=== PATIENT | female | born 1935 | race Caucasian/White ===

== ENCOUNTER 2022-05-18 14:40 | Emergency (ER) | payer OTHER ==
[~2022-05-18] VITALS: Ht 160 cm; Wt 63.5 kg
[2022-05-18] MEDS ORDERED: IV NORMAL SALINE 500 ML BAG IV ONE (15:00)
[2022-05-18 15:03] LABS: HEMATOCRIT 32.3 % (31.2-41.9); MEAN CORPUSCULAR HEMOGLOBIN 29.6 uug (24.7-32.8); MEAN CORPUSCULAR VOLUME 87.2 fL (75.5-95.3); PLATELET COUNT (AUTO) 307 K/uL (179-408)
[2022-05-18 15:16] LABS: BILIRUBIN,TOTAL 0.4 mg/dL (0.2-1.0); TOTAL PROTEIN, SERUM 7.9 g/dL (6.4-8.2)
[2022-05-18] MEDS ORDERED: HYDROCODONE/APAP 10-325 MG TABLET ONE (15:19)
--- NOTE | 2022-05-18 15:22 | NUR ---
PATIENT WAS SEEN BY . EKG DONE ,ALBS DRAWN, IV PLACED. PATIENT STATES SHE HAS A "FRACTURED BACK" AND REQUESTS PAIN MED.. DR GILBERT NOTIFIED
[2022-05-18] MEDS ORDERED: HYDROCODONE/APAP 10-325 MG TABLET PO ONE (15:30)
--- NOTE | 2022-05-18 15:55 | NUR ---
covid swab sent to lab
[2022-05-18] MEDS ORDERED: MORPHINE SULFATE 4 MG/1 ML DISP.SYRIN ONE (17:41)
[2022-05-18] MEDS ORDERED: MORPHINE SULFATE 4 MG/1 ML DISP.SYRIN IV ONE ×2 (17:45→19:15)
--- NOTE | 2022-05-18 19:00 | NUR ---
Patient c/o back pain, aware.. she recieved Gillett 10mg and Morphine 4 mg IV. She now states she "still has pain", Dr Kelly notified
--- NOTE | 2022-05-18 19:29 | NUR ---
hand off report given to jaqui
[2022-05-18] MEDS ORDERED: HYDROMORPHONE 1 MG/1 ML DISP.SYRIN IV ONE (19:30)
[2022-05-18] MEDS ORDERED: HYDROMORPHONE 1 MG/1 ML DISP.SYRIN ONE (20:10)
--- NOTE | 2022-05-18 20:32 | NUR ---
Spoke to Katherin at [facility]. Patient will be going to [facility] Room 4049-A. Admitting by Dr. Alvarez via [facility] ambulance. ETA potato picker time ~21:50.
--- NOTE | 2022-05-18 20:41 | NUR ---
Wells 10-325mg 1 tab given at 15:22 and Morphine 4 mg IV given at 17:46. Reassessment not done at 16:22 and 18:16 by previous nurse. Marked at not done.
--- NOTE | 2022-05-18 20:55 | NUR ---
Report given to Iman SALDIVAR at [facility]
--- NOTE | 2022-05-18 21:11 | NUR ---
Patient picked up by [facility] via gurney in stable condition, no signs of distress with personal belongings. Patients vital signs upon discharge 146/87. HR 87. RR 18. 02:96% Room Air.
--- NOTE | 2022-05-18 21:12 | NUR ---
Patient Tranfers to outside Facility Physician: Dr Awan Location: [facility] Room 4040V.
== END 2022-05-18 21:11 | disposition short-term general hospital (02) ==
LOC: ER 14:40
DX: E87.1 Hypo-osmolality and hyponatremia (principal); R53.1 Weakness; I48.91 Unspecified atrial fibrillation; G89.3 Neoplasm related pain (acute) (chronic); D02.20 Carcinoma in situ of unspecified bronchus and lung; Z20.822 Contact with and (suspected) exposure to COVID-19; I10 Essential (primary) hypertension; Z79.899 Other long term (current) drug therapy
CPT/HCPCS: 99285; 96374; 96361; 71045; 96375; 87426; 80053; 85025; 84484; 36415; 93005; J1170; J2270; A4663